=== PATIENT | male | born 1995 | race Caucasian/White ===

== ENCOUNTER 2021-08-26 08:50 | Emergency (ER) | payer OTHER, SELFPAY ==
[2021-08-26 08:54] VITALS: BP 137/90; PULSE 94; RESP 16; TEMP 37.2; O2SAT 97
--- NOTE | 2021-08-26 08:57 | ED.GENADUL_ITS ---
Discharge Plan Disposition Patient Disposition: HOME Condition: Stable Discharge Details Clinical Impression: Effusion, right knee Primary Care Provider: None,None ED Provider: Baltazar Pal Home Meds and New Rx's Prescriptions: Continued multivitamin Tablet 1 tab PO DAILY 0RF Discharge Instructions Instructions: Swollen Knee Joint (ED) Additional Instructions: X-ray does not reveal any obvious bony abnormality but there does appear to be a small knee effusion. Rest, elevate, cool compresses every 2 hours for 20 minutes. Wear knee immobilizer and use crutches, advance activity as tolerated. [id number] Tylenol and/or Motrin as directed for discomfort. Please watch for new or worsening symptoms and return to the ER for any concerns. I have placed you on the orthopedic list, please contact their office tomorrow discuss your ER visit and need for outpatient reevaluation. Referrals: John Mendez MD [ [facility] STAFF PHYSICIAN] - Medical Decision Making 26-year-old gentleman reports that he was skiing yesterday, went over a small bump and landed awkwardly on his right knee, twisting his knee. Denies any other injury. Reports the pain in his knee is moderate 5 out of 10, denies numbness, tingling, weakness. He is able to ambulate but has increased pain with ambulation. Did take Motrin today. Clinically he appears well, nontoxic, knee is stable but does have increased pain with varus and valgus stress, diffuse anterior swelling and discomfort. Neuro, vascular, tendon intact. Plan is to obtain x-ray and reassess. X-ray unremarkable for bony abnormality, there is a small joint effusion present. Discussed joint effusion with patient, concern for internal derangement. Will place into a long-leg immobilizer, give crutches with teaching, and refer to orthopedics. We discussed conservative treatment until orthopedic follow-up. Standard discharge and return precautions provided This documentation was generated using [employer] dictation system, please disregard any oddities of phrase or misspellings. Imaging Data Radiologic Study: Attestation: I personally reviewed and interpreted this imaging study as follows: Imaging: X-Ray Radiologist's impression: Exam(s) XR KNEE RT 4V+ EXAM: XR KNEE RT 4V+ CLINICAL HISTORY: ski accident, twist. TECHNIQUE: 2D digital imaging was performed. COMPARISON: No exams were available for comparison FINDINGS: BONES: No acute fracture is present. No bony destructive lesion is seen. JOINTS: The knee is normally aligned. No joint effusion is seen. Joint spaces are well maintained. SOFT TISSUE: Question of a small joint effusion. IMPRESSION: No evidence of fracture. Question of a small joint effusion. HPI General Mode of arrival: ambulatory . Date/Time Provider Initiated Documentation: 08/26/21 08:57 . Limitations to Documentation: no limitations . Information obtained by: patient . History of Present Illness 26 year old M presents to the emergency department with the chief complaint of R knee injury, described as moderate, with intensity rated at 5. Quality is described as aching, and is localized to the right and lower extremity. Patient reports no radiation. Patient started experiencing this day(s) (1) and it has been constant. improves with Immobilization improves symptom(s), Movement worsens symptoms . Patient notes no other symptoms.. Patient did receive the following treatments prior to arrival, NSAID Related Data Home Medications Medication Instructions Recorded Confirmed multivitamin 1 tab PO DAILY 08/26/21 08/26/21 Allergies Allergy/AdvReac Type Severity Reaction Status Date / Time No Known Allergies Allergy Unverified 08/26/21 08:59 Review of Systems Constitutional Constitutional: Denies headache(s) and Denies weakness ENT Ears, Nose, Mouth, and Throat: Denies headache(s) Musculoskeletal Musculoskeletal: Denies deformity, Reports arthralgias, Denies numbness, Reports stiffness and Denies tingling Integumentary/Breasts Skin/Breast: Denies rash Neurologic Neurologic: Denies headache(s), Denies numbness, Denies tingling and Denies weakness PFSH All Active Problems (Updated 08/26/21 @ 10:15 by HEAVEN Mike) Effusion, right knee (Acute) Social History Smoking/Tobacco Use Status: Former Tobacco Use Smoking risk assessment performed?: Yes Substance use type: does not use Exam Const General: cooperative, healthy appearing, comfortable and no acute distress Orientation: alert and awake HENMT Head: normal to inspection, normocephalic and atraumatic Eyes Conjunctivae: conjunctivae normal Neck Neck: normal visual inspection, trachea midline and supple Resp Effort & Inspection: normal respiratory effort and able to speak in complete sentences Cardio Rate: regular rate Rhythm: regular rhythm Skin General skin exam: no rashes or lesions noted Neuro General: patient alert, patient awake, moves all extremities and no focal motor deficits Cognition: normal cognition Speech: speech normal Gait: antalgic Motor: muscle tone normal throughout Sensory Exam: no sensory deficits noted Extrem General: full ROM and capillary refill normal Other: Right lower extremity, hip, calf, ankle, foot unremarkable. Normal dorsalis pedal pulse and capillary refill. Knee with diffuse mild anterior swelling, no erythema, warmth or ecchymosis. There is diffuse anterior, lateral, medial discomfort but there is no bony point tenderness or deformity. Slight limited range of motion both flexion and extension secondary to discomfort. Knee appears stable, negative anterior draw. There is increased discomfort with both varus and valgus stress but again no instability. Neuro, vascular, tendon intact. Psych Appearance: grossly normal Mental Status: mental status grossly normal
--- NOTE | 2021-08-26 09:00 | DI.RAD_ITS ---
Exam(s) XR KNEE RT 4V+ EXAM: XR KNEE RT 4V+ CLINICAL HISTORY: ski accident, twist. TECHNIQUE: 2D digital imaging was performed. COMPARISON: No exams were available for comparison FINDINGS: BONES: No acute fracture is present. No bony destructive lesion is seen. JOINTS: The knee is normally aligned. No joint effusion is seen. Joint spaces are well maintained. SOFT TISSUE: Question of a small joint effusion. IMPRESSION: No evidence of fracture. Question of a small joint effusion. DATA REPOSITORY: RADIATION DOSE DELIVERED:
--- OUTSIDE RECORDS SUMMARY | 2021-08-26 09:43 | XMS_ITS ---
:1995 Author Care Team Providers Name Role Phone SHIVANI STEVENSON PA-C Primary Care Provider [phone] BERTHA LY MD Orthopedic Surgeon [phone] Allergies Code Code System Name Reaction Severity Status Onset NKDA ? Medications Name Status Start Date Stop Date ? ? erythromycin 5 mg/gram (0.5 %) eye ointment Completed 02/201203/15/2012 1 Ointment: topically as directed Gardasil (PF) [id number]/0.5mL intramuscular mcarthur spension Completed 08/10/2011 11/26/2011 1 (one) INJECTION: Once penicillin V potassium 500 mg tablet Completed 03/25/2011 04/04/2011 1 (one) Tablet: 4 times a day Zithromax Z-Justice 250 mg tablet Completed 07/03/2010 1 (one) Tablet: daily Problems Name Status Onset Date Source ? Tinea Pedis Active ? History Benign Neoplasm of Bone Active ? History Headache Disorder Active ? History Perforation of Tympanic Membrane Active ? History Pharyngitis Active ? History Seizure Active ? History Dizziness and Giddiness Active ? History Lack of Energy Active ? History Headache Active ? History Sprain of Ankle And/or Foot Active ? Hist ory Sprain of Deltoid Ligament of Ankle Active ? History Superficial Injury of Eye Active ? Histor y Injury of Shoulder and Upper Arm Active ? History Active Immunization Active ? History General Examination of Patient Active ? H istory Procedures Date Name Performed by ? 12/21/2018 XR, Hand, 3 or More View [facility] (Internal) [address] [place] [address] ([address]) 01/04/2019 XR, Hand, 3 or More View [facility] (Internal) [address] [place] [address] (Work Place) Results Lab Results None recorded. Past Encounters None recorded. Social History Tobacco Smoking Status Never Smoker Vaccine List Vaccine Type DTP 1994 1994 1994 03/14/1997 08/14/1998 Hep B, adolescent or pediatric 1994 1994 1994 Hib (HbOC) 1994 1994 1994 03/28/1997 HPV, quadrivalent 08/10/2011?0.5 mL meningococcal MCV4O 08/10/2011 meningococcal MCV4P 07/11/2007 MMR 01/12/1995 08/12/1998 OPV 1994 1994 1994 08/12/1998 Tdap 07/15/2008 varicella 08/14/1998 01/24/2009 Plan of Care Reminders Provider Appointments None ? ? recorded. Lab None ? ? recorded. Referral None ? ? recorded. Procedures None ? ? recorded. Surgeries None ? ? recorded. Imaging None ? ? recorded. Vitals 12/21/2018 03:30PM Acute 15 Height Weight BMI 172.72 cm 71.62 kg 24 kg/m2 01/12/2014 Height Weight Blood Pressure 172.72 cm 67.13 kg 118/70 mm[Hg] 03/15/2012 Height Weight Blood Pressure 170.18 cm 61.23 kg 123/62 mm[Hg] 12/21/2011 Height Weight Blood Pressure 169.55 cm 59.87 kg 116/64 mm[Hg] 12/01/2011 Weight Blood Pressure 61.23 kg 126/80 mm[Hg] 11/26/2011 Height Weight Blood Pressure 169.55 cm 61.69 kg 114/64 mm[Hg] 08/10/2011 Height Weight Blood Pressure 169.55 cm 63.05 kg 116/60 mm[Hg] 03/25/2011 Height Weight Blood Pressure 167.64 cm 65.32 kg 122/66 mm[Hg] 07/03/2010 Weight Blood Pressure 67.13 kg 116/70 mm[Hg] 02/26/2010 Height Weight Blood Pressure 165.74 cm 65.32 kg 118/66 mm[Hg] 04/11/2009 Height Weight 162.56 cm 61.23 kg 02/12/2009 Height Weight 162.56 cm 59.87 kg 01/16/2008 Height Weight 160.02 cm 48.08 kg
== END 2021-08-26 10:24 | disposition home or self-care (01) ==
PROVIDERS: Emergency Provider Physician Assistant
DX: M25.461 Effusion, right knee (principal); X50.1XXA Overexertion from prolonged static or awkward postures, initial encounter
CPT/HCPCS: 29505; 99283; 73564

== ENCOUNTER 2021-09-24 01:03 | Outpatient (CLI) | payer OTHER, SELFPAY ==
--- NOTE | 2021-09-24 15:20 | DI.MRI_ITS ---
Exam(s) MR LOWER JOINT RT WO EXAM: MR LOWER JOINT RT WO CLINICAL HISTORY: R KNEE PAIN,injury,[id number].m25.561,effusion,m25.461,internal derangeme. TECHNIQUE: Multiplanar multisequence MRI was performed. COMPARISON: CR XR KNEE RT 4V+ from 08/26/2021 FINDINGS: BONES: Large amount of edema lateral femoral condyle and lateral tibial plateau. Small focus of sumanth ow edema medial aspect of medial femoral condyle and posterior aspect of the medial tibial plateau.. JOINTS: Articular cartilage is unremarkable. A small joint effusion is present. TENDONS: Extensor mechanism: Unremarkable. Medial retinaculum: Unremarkable. Lateral retinaculum: Unremarkable. Popliteus: Unremarkable. MUSCLES: Unremarkable. MENISCI: The medial meniscus shows some minimally high signal without definite discrete tear.. The l ateral meniscus is unremarkable. SOFT TISSUES: Unremarkable. LIGAMENTS: Anterior Cruciate: Discontinuous near the femoral attachment consistent with a full-thickness tear.. Posterior Cruciate: Unremarkable. Medial Collateral:Unremarkable. Lateral Collateral: Unremarkable. OTHER: IMPRESSION: Anterior cruciate ligament tear. Bone contusions. Question medial meniscal contusion. DATA REPOSITORY:
== END 2021-09-24 01:23 ==
PROVIDERS: Visit Provider Student in an Organized Health Care Education/Training Program
DX: M25.561 Pain in right knee; M25.461 Effusion, right knee; M23.8X1 Other internal derangements of right knee; R60.0 Localized edema; S83.511A Sprain of anterior cruciate ligament of right knee, initial encounter
CPT/HCPCS: 73721